=== PATIENT | male | born 1995 | race Hispanic/Latino ===

== ENCOUNTER 2020-01-12 11:58 | Outpatient (CLI) | payer OTHER, SELFPAY ==
[2020-01-12 12:53] LABS: Alanine Aminotransferase 25 U/L (4-50); Albumin Level 4.5 g/dL (3.5-5.1); Alkaline Phosphatase 124 U/L (38-126); Aspartate Amino Transferase 24 U/L (17-59); Bilirubin,Total 0.7 mg/dL (0.2-1.3); Blood Urea Nitrogen 17 mg/dL (9-20); Calcium 8.8 mg/dL (8.4-10.2); Carbon Dioxide 27 mmol/L (22-30); Chloride 100 mmol/L (98-107); Cholesterol 162 mg/dL (0-200); Estimated Glomerular Filt Rate > 60; Glucose 355 mg/dL (75-110); HDL Direct 45 mg/dL; Sodium 137 mmol/L (137-145); Triglycerides 104 mg/dL (<150)
[2020-01-12 13:04] LABS: Creatinine Urine 47.6 mg/dL
[2020-01-12 13:05] LABS: LDL Cholesterol Direct 102 mg/dL
[2020-01-12 13:09] LABS: T4 Thyroxine 7.19 ug/dL (5.53-11.0)
[2020-01-12 13:10] LABS: Microalbumin Urine Random < 6.0 mg/L (0-16.7)
[2020-01-12 13:11] LABS: MALB Creatinine Ratio < 12.6 mg/g (0-30)
== END 2020-01-12 11:59 | disposition home or self-care (01) ==
PROVIDERS: PCP Registered Nurse; Visit Provider Internal Medicine Endocrinology, Diabetes & Metabolism
DX: E10.65 Type 1 diabetes mellitus with hyperglycemia (principal)
CPT/HCPCS: 36415; 80053; 80061; 82043; 84436; 84443

== ENCOUNTER 2020-08-03 13:26 | Emergency (ER) | payer MEDICAID, SELFPAY ==
--- NOTE | ~2020-08-03 | CT_ITS ---
EXAMINATION: CT abdomen pelvis w con DATE: 08/03/2020 16:46 INDICATION: Abdominal pain and diarrhea TECHNIQUE: Computed tomography (CT) of the abdomen and pelvis was performed with 100 mL Omnipaque-350 intravenous contrast. Automated exposure control and iterative reconstruction technique were employe d. The dose-length product was 868.72 mGy-cm. COMPARISON: None FINDINGS: Lung bases are clear. Heart size is normal. No pericardial or pleural effusion. Bilateral gynecomasti a. Indeterminate 2.5 cm poorly defined nodule in segment 3 of the liver demonstrate slightly lower at tenuation/enhancement than the surrounding liver. Gallbladder, spleen, pancreas, bilateral adrenal gl ands and kidneys are normal. Mild diffuse colonic wall thickening suggestive of colitis. No pneumatos is. Small bowel and appendix are normal. Decompressed bladder is normal. No free intraperitoneal gas or fluid. No pathologically enlarged abdominal or pelvic lymphadenopathy. Incidentally noted circumao rtic left renal veins. Bilateral L5 pars intra-articular is defects without spondylolisthesis. IMPRESSION: 1. Diffuse mild colonic wall thickening consistent with colitis which could be infectious, inflammato ry or an likely ischemic in etiology. 2. Indeterminate 2.5 cm lesion in the left hepatic lobe. Given patient's age and in the absence of kn own malignancy or liver disease this is most likely benign with differential including focal nodular hyperplasia, hemangioma or focal fat and would consider 6 month follow-up pre and postcontrast MRI. I f the patient has high risk factors for malignancy, more immediate pre and postcontrast MRI would be recommended, possibly with subsequent biopsy. 3. Bilateral L5 pars interarticularis defects. Reviewed, dictated and finalized at location A. UNT MANAGEMENT SPECIALIST IMPRESSION: 1. Diffuse mild colonic wall thickening consistent with colitis which could be infectious, inflammatory or an likely ischemic in etiology. 2. Indeterminate 2.5 cm lesion in the left hepatic lobe. Given patient's age an d in the absence of known malignancy or liver disease this is most likely benig n with differential including focal nodular hyperplasia, hemangioma or focal fa t and would consider 6 month follow-up pre and postcontrast MRI. If the patient has high risk factors for malignancy, more immediate pre and postcontrast MRI would be recommended, possibly with subsequent biopsy. 3. Bilateral L5 pars interarticularis defects.
[2020-08-03 13:28] VITALS: BP 132/81; PULSE 70; RESP 16; TEMP 36; O2SAT 100
[2020-08-03 13:44] LABS: Basophils Percent Auto 0.4 % (0.2-1.2); Eosinophils Absolute Auto 0.1 K/mm3 (0-0.3); Hemoglobin 14.8 g/dL (14.0-18.0); Immature Granulocyte Absolute 0.01 K/mm3 (0.00-0.031); Immature Granulocyte Percent A 0.1 % (0-0.5); Lymphocytes Absolute Auto 1.42 K/mm3 (0.9-3.2); Lymphocytes Percent Auto 20.6 % (18.3-44.2); Mean Corpuscular HGB Conc 34.4 g/dl (32-36); Mean Corpuscular Hemoglobin 29.3 pg (26-34); Mean Corpuscular Volume 85.1 fl (80-100); Mean Platelet Volume 11.1 fl (7.4-10.4); Monocytes Absolute Auto 0.4 K/mm3 (0.1-0.6); Monocytes Percent Auto 5.8 % (2.6-8.5); Neutrophils Absolute Auto 4.9 K/mm3 (1.3-6.7); Neutrophils Percent Auto 71.1 % (45.5-73.1); Platelet Count Result 253 k/mm3 (150-375); Red Blood Count 5.05 M/mm3 (4.6-6.20); Red Cell Distribution Width 12.4 % (11.5-14.5); White Blood Count 6.9 K/mm3 (4.5-10.0)
[2020-08-03 13:57] LABS: Alanine Aminotransferase 21 U/L (4-50); Albumin Level 4.4 g/dL (3.5-5.1); Alkaline Phosphatase 123 U/L (38-126); Anion Gap 6 mmol/L (8-16); Aspartate Amino Transferase 25 U/L (17-59); Bilirubin,Total 0.7 mg/dL (0.2-1.3); Blood Urea Nitrogen 10 mg/dL (9-20); Carbon Dioxide 32 mmol/L (22-30); Chloride 102 mmol/L (98-107); Estimated CRCL calculation 224 ml/min; Estimated Glomerular Filt Rate > 60; Glucose 263 mg/dL (75-110); Lipase 44 U/L (23-300); Potassium 3.6 mmol/L (3.4-5.0); Sodium 140 mmol/L (137-145)
--- NOTE | 2020-08-03 15:32 | ECG_ITS ---
Measurements Intervals [place] Rate: 67 P: 11 OR: 128 QRS: 13 QRSD: 114 T: 17 QT: 376 QTc: 399 Interpretive Statements SINUS RHYTHM INTRAVENTRICULAR CONDUCTION DELAY BORDERLINE ECG Electronically Signed On 08-03-2020 15:57:21 WELFARE MANAGER by Quan Green D.O.
[2020-08-03 15:35] VITALS: TEMP 36.6
--- NOTE | 2020-08-03 16:21 | ED.ABDPAIN ---
HPI - Abdominal Pain General Chief Complaint: Abdominal Pain Stated Complaint: ABD pain x 1 week Time Seen by Provider: 08/03/20 15:24 Source: patient Mode of arrival: ambulatory Limitations: no limitations History of Present Illness HPI narrative: This patient is 24 year old male with history of diabetes mellitus who presents for evaluation abdominal pain and diarrhea. Patient states he has had constant epigastric abdominal pain and heart burn for 1 week. He has been taking tums and peptobismal daily for his symptoms. He also reports diarrhea 2-3 times a day. He denies fever, chills , nausea, vomiting , cough or sob. He reports peptobismal mad his heart burn resolve this morning. He denies sick contacts. Related Data Allergies Allergy/AdvReac Type Severity Reaction Status Date / Time No Known Allergies Allergy Unverified 02/04/17 16:31 Review of Systems Review of Systems: All systems reviewed & are unremarkable except as noted in HPI and below Constitutional: Constitutional: Denies chills and Denies fever(s) Cardiovascular: Cardiovascular: Denies chest pain Respiratory: Respiratory: Denies cough and Denies dyspnea Gastrointestinal: Gastrointestinal: Reports abdominal pain, Reports diarrhea and Reports nausea Neurologic: Denies headache(s) PMFSH Past Medical History Medical History Diabetes mellitus Family History Family History (Updated 07/21/19 @ 12:42 by Patsy Rodriguez MD) Sibling Diabetes mellitus Social History Social History (Updated 01/21/20 @ 12:52 by Patsy Rodriguez MD) Smoking status: Never smoker Second hand tobacco smoke exposure: No Alcohol intake: never Substance use: never Substance use type: does not use Additional living arrangements comments: lives with parents 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 HEAD: Normocephalic, atraumatic EYES: PERRLA and EOMI, conjunctiva clear without discharge THROAT:Mucous membranes moist, Oropharynx normal without erythema, exudate, peritonsillar swelling or fluctuance NECK: Supple, without lymphadenopathy or mass RESPIRATORY: No respiratory distress, Airway patent, Respirations non-labored, Clear to auscultation without rales, rhonchi or wheeze HEART: Regular rate and rhythm. No murmur heard. Normal peripheral pulses. ABDOMEN: Soft, nontender, nondistended, normal active bowel sounds. No masses. No rebound or guarding, No organomegaly. EXTREMITIES: No edema, normal strength with full range of motion. SKIN: Warm, dry, normal color without rash NEURO: Alert and oriented x3. CN 2-12 grossly intact. No focal deficits. PSYCH: Normal mood and affect. Course Reevaluation(s) Reevaluation #1: I have discussed with patient CT results and discharge plan. Date: 08/03/20 Time: 18:23 Vital Signs Vital signs: Vital Signs Temperature 96.8 F L 08/03/20 13:28 Pulse Rate 70 08/03/20 13:28 Respiratory Rate 16 08/03/20 13:28 Blood Pressure 132/81 08/03/20 13:28 Pulse Oximetry 100 08/03/20 13:28 Temperature 97.9 F 08/03/20 18:56 Pulse Rate 78 08/03/20 18:56 Respiratory Rate 22 H 08/03/20 18:56 Blood Pressure 110/71 08/03/20 18:56 Pulse Oximetry 100 08/03/20 18:56 MDM - Abdominal Pain Lab Data Attestation: I reviewed the patient's lab results. Result diagrams: 08/03/20 13:34 08/03/20 13:34 Labs: Lab Results 08/03/20 08/03/20 08/03/20 Range/Units 13:34 13:34 17:04 WBC 6.9 (4.5-10.0) K/mm3 RBC 5.05 (4.6-6.20) M/mm3 Hgb 14.8 (14.0-18.0) g/dL Hct 43.0 (42.0-52.0) % MCV 85.1 (80-100) fl MCH 29.3 (26-34) pg MCHC 34.4 (32-36) g/dl RDW 12.4 (11.5-14.5) % Plt Count
[2020-08-03] MEDS: ONDANSETRON INJ 4 MG/2 ML VIAL IV PUSH (16:30)
[2020-08-03] MEDS: PANTOPRAZOLE SODIUM IV 40 MG VIAL IV PUSH (16:30)
[2020-08-03] MEDS: BELLADONNA ALK/PHENOB ELIX 10 ML, MAG HYDROX/ALUMINUM HYD/SIMETH 30 ML, LIDOCAINE HCL 2... PO (16:30)
[2020-08-03 17:16] LABS: Add Urine Microscopic? YES; Appearance Urine Clear (Clear); Bacteria Urine Trace /hpf; Bilirubin Urine Negative (Negative); Blood Urine Negative (Negative); Color Urine Yellow (Yellow); Glucose Urine UA 3+ mg/dL (Negative); Ketones Urine Trace mg/dL (Negative); Leukocyte Esterase Ur Negative LEU/UL (Negative); Mucus Urine Heavy /lpf; Nitrate Urine Negative (Negative); Protein Urine 1+ mg/dL (Negative); RBC Urine 0-2 /hpf (0-2); Squamous Epithelial Cell Urine Rare /hpf (Few)
--- NOTE | 2020-08-03 17:32 | PC.NURSE ---
resting on stretcher. all tests resulted. alert. oriented. denies needs. waiting for further orders vs disposition from provider.
[2020-08-03 18:56] VITALS: BP 110/71; PULSE 78; RESP 22; TEMP 36.6; O2SAT 100
== END 2020-08-03 18:58 | disposition home or self-care (01) ==
PROVIDERS: Emergency Medicine; Emergency Provider General Practice; PCP Registered Nurse
DX: K52.9 Noninfective gastroenteritis and colitis, unspecified (principal); E11.9 Type 2 diabetes mellitus without complications; K76.9 Liver disease, unspecified
CPT/HCPCS: 36415; 74177; 80053; 81001; 83690; 85025; 93005; 96374; 96375; 99284; A9270; C9113; J2405; Q9967

== ENCOUNTER 2020-08-23 03:41 | Inpatient (IN) | payer MEDICAID, SELFPAY ==
[2020-08-23] VITALS (25 sets, daily range): BP systolic 100–133; BP diastolic 52–67; PULSE 78–115; RESP 16–20; TEMP 35.6–37.2; O2SAT 98–100
[2020-08-23] MEDS: SODIUM CHLORIDE 0.9% IV 2,000 ML 999 ML IV CONT (04:05)
[2020-08-23] MEDS: ONDANSETRON INJ 4 MG/2 ML VIAL IV PUSH ×3 (04:05→23:32)
--- NOTE | 2020-08-23 04:05 | ED.GENADULT ---
HPI - General Adult General Chief complaint: Nausea/Vomiting/Diarrhea Stated complaint: vomiting Time Seen by Provider: 08/23/20 03:52 History of Present Illness HPI narrative: Patient is a 25-year-old gentleman who presents the emergency department with chief complaint of nausea and vomiting. The patient is a insulin-dependent diabetic and reports that he has not been checking his blood sugars the patient states on Sunday evening he started having episodes of vomiting and has been unable to tolerate fluids since Sunday. The patient reports he has had several bouts of diarrhea reports that he was recently treated for colitis with oral antibiotics and only completed 7 days of the course of the antibiotic because it tasted weird and it conflicted with his work schedule. Related Data Allergies Allergy/AdvReac Type Severity Reaction Status Date / Time No Known Allergies Allergy Unverified 02/04/17 16:31 Review of Systems Review of Systems: Narrative: A 10 system review of systems was completed on the patient and is negative except for what is stated in the HPI. Nursing and ancillary documentation was reviewed. 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 HEAD: Normocephalic, atraumatic. EYES: PERRLA and EOMI. ENT: Nares clear, no rhinorrhea or epistaxis. Mucous membranes moist. NECK: Supple. CHEST: Clear to auscultation. No respiratory distress. HEART: Regular rate and rhythm. No murmur heard. Normal peripheral pulses. ABDOMEN: Soft, nontender, nondistended, normal active bowel sounds. EXTREMITIES: Normal range of motion. No edema. SKIN: Warm, dry, no rash. NEURO: No focal deficits. Alert and oriented x3. PSYCH: Normal mood and affect. Course Vital Signs Vital signs: Vital Signs Temperature 35.6 C L 08/23/20 03:46 Pulse Rate 113 H 08/23/20 03:46 Respiratory Rate 18 08/23/20 03:46 Blood Pressure 118/53 L 08/23/20 03:46 Pulse Oximetry 100 08/23/20 03:46 Temperature 35.6 C L 08/23/20 03:46 Pulse Rate 113 H 08/23/20 03:46 Respiratory Rate 18 08/23/20 03:46 Blood Pressure 118/53 L 08/23/20 03:46 Pulse Oximetry 100 08/23/20 03:46 Medical Decision Making Vital Signs Vital Signs: Vital Signs Temperature 35.6 C L 08/23/20 03:46 Pulse Rate 113 H 08/23/20 03:46 Respiratory Rate 18 08/23/20 03:46 Blood Pressure 118/53 L 08/23/20 03:46 Pulse Oximetry 100 08/23/20 03:46 Temperature 35.6 C L 08/23/20 03:46 Pulse Rate 113 H 08/23/20 03:46 Respiratory Rate 18 08/23/20 03:46 Blood Pressure 118/53 L 08/23/20 03:46 Pulse Oximetry 100 08/23/20 03:46 Lab Data Result diagrams: 08/23/20 04:09 08/23/20 04:09 Labs: Lab Results 08/23/20 08/23/20 08/23/20 Range/Units 04:09 04:09 04:09 WBC 18.5 H (4.5-10.0) K/mm3 RBC 5.33 (4.6-6.20) M/mm3 Hgb 15.9 (14.0-18.0) g/dL Hct 47.6 (42.0-52.0) % MCV 89.3 (80-100) fl MCH 29.8 (26-34) pg MCHC 33.4 (32-36) g/dl RDW 12.4 (11.5-14.5) % Plt Count 303 (150-375) k/mm3 MPV 11.7 H (7.4-10.4) fl Immature Gran % (Auto) 0.7 H (0-0.5) % Neut % (Auto) 87.0 H (45.5-73.1) % Lymph % (Auto)
[2020-08-23 04:18] LABS: Alveolar/Arterial O2 Gradient 15.4 mmHg; Base Excess ABG -14.5 mEq/l (+/-2.0); Fractional Inspired Oxygen 21 %; HCO3 ABG 12.1 mEq/l (22.0-26.0); Oxygen Content ABG 20.8 %vol (16.0-22.0); Oxygen Saturation ABG 96.1 % (95.0-100.0); Oxyhemoglobin 95.6 % THb (90.0-100.0); PCO2 ABG 31.2 mmHg (35.0-45.0); PO2 FiO2 Ratio Arterial Blood 4.62 %; Total Hemoglobin 15.4 g/dL (12.0-18.0)
[2020-08-23 04:20] LABS: Device ROOM AIR; Modified Allen's Test Pass; Site Drawn LEFT RADIAL; pH ABG 7.206 (7.350-7.450)
[2020-08-23 04:24] LABS: Glucose Point of Care > 500 (65-105)
[2020-08-23 04:26] LABS: Basophils Absolute Auto 0.1 K/mm3 (0.0-0.1); Basophils Percent Auto 0.3 % (0.2-1.2); Hematocrit 47.6 % (42.0-52.0); Hemoglobin 15.9 g/dL (14.0-18.0); Immature Granulocyte Absolute 0.12 K/mm3 (0.00-0.031); Immature Granulocyte Percent A 0.7 % (0-0.5); Lymphocytes Absolute Auto 1.66 K/mm3 (0.9-3.2); Mean Corpuscular HGB Conc 33.4 g/dl (32-36); Mean Corpuscular Hemoglobin 29.8 pg (26-34); Mean Corpuscular Volume 89.3 fl (80-100); Mean Platelet Volume 11.7 fl (7.4-10.4); Monocytes Absolute Auto 0.6 K/mm3 (0.1-0.6); Neutrophils Absolute Auto 16.1 K/mm3 (1.3-6.7); Platelet Count Result 303 k/mm3 (150-375); Red Blood Count 5.33 M/mm3 (4.6-6.20); Red Cell Distribution Width 12.4 % (11.5-14.5); White Blood Count 18.5 K/mm3 (4.5-10.0)
[2020-08-23 04:56] LABS: Alanine Aminotransferase 38 U/L (4-50); Albumin Level 5.1 g/dL (3.5-5.1); Alkaline Phosphatase 152 U/L (38-126); Anion Gap 29 mmol/L (8-16); Aspartate Amino Transferase 44 U/L (17-59); Bilirubin,Total 1.6 mg/dL (0.2-1.3); Blood Urea Nitrogen 22 mg/dL (9-20); Calcium 9.9 mg/dL (8.4-10.2); Carbon Dioxide 12 mmol/L (22-30); Chloride 96 mmol/L (98-107); Estimated Glomerular Filt Rate > 60; Glucose 600 mg/dL (75-110); Lipase 25 U/L (23-300); Potassium 4.6 mmol/L (3.4-5.0); Sodium 137 mmol/L (137-145)
[2020-08-23] MEDS: SODIUM CHLORIDE 0.9% IV 1,000 ML 200 ML IV CONT (05:21)
[2020-08-23] MEDS: INSULIN HUMAN REGULAR (*BKC) 100 UNITS in SODIUM CHLORIDE 0.9% IV 99 ML 8.6 UNITS IV CONT (05:32)
[2020-08-23] MEDS: SODIUM CHLORIDE 0.9% IV 1,000 ML 999 ML IV CONT (05:36)
[2020-08-23 05:37] LABS: Glucose Point of Care 493 (65-105)
[2020-08-23 05:43] LABS: Beta-Hydroxybutyrate/Acetoacetate 7.14 mmol/L (0.02-0.27)
[2020-08-23 05:48] LABS: Add Urine Microscopic? YES; Appearance Urine Clear (Clear); Bilirubin Urine Negative (Negative); Blood Urine Negative (Negative); Color Urine Colorless (Yellow); Glucose Urine UA 3+ mg/dL (Negative); Ketones Urine 2+ mg/dL (Negative); Leukocyte Esterase Ur Negative LEU/UL (Negative); Nitrate Urine Negative (Negative); Protein Urine Negative (Negative); RBC Urine 0-2 /hpf (0-2); Specific Grav Ur 1.024 (1.001-1.035); Squamous Epithelial Cell Urine Rare /hpf (Few); Urobilinogen Urine Negative mg/dL (<2.0); WBC Urine 0-3 /hpf
[2020-08-23 06:36] LABS: Glucose Point of Care 416 (65-105)
[2020-08-23 07:34] LABS: Glucose Point of Care 323 (65-105)
[2020-08-23 08:34] LABS: Glucose Point of Care 302 (65-105)
[2020-08-23] MEDS: SODIUM CHLORIDE 0.9% IV 1,000 ML 150 ML IV CONT (08:40)
[2020-08-23 09:11] LABS: Anion Gap 22 mmol/L (8-16); Blood Urea Nitrogen 19 mg/dL (9-20); Calcium 8.6 mg/dL (8.4-10.2); Carbon Dioxide 10 mmol/L (22-30); Chloride 111 mmol/L (98-107); Estimated Glomerular Filt Rate > 60; Glucose 310 mg/dL (75-110); Potassium 4.4 mmol/L (3.4-5.0); Sodium 143 mmol/L (137-145)
[2020-08-23 09:28] LABS: Glucose Point of Care 257 (65-105)
[2020-08-23 10:32] LABS: Glucose Point of Care 255 (65-105)
[2020-08-23] MEDS: KCL 20 MEQ/D5/0.45% SOD CHL 1,000 ML 150 ML IV CONT (11:31)
[2020-08-23 11:33] LABS: Glucose Point of Care 168 (65-105)
[2020-08-23 12:33] LABS: Glucose Point of Care 189 (65-105)
--- NOTE | 2020-08-23 12:35 | PM.IMHP ---
H&P: HPI History of Present Illness Date/Time: 08/23/20 12:35 N/V/Abdominal pain. Chief Complaint: N/V/Abdominal pain. Narrative: Norm Vaughan is a 25 year old male with PMHx significant for T1DM, patient presented to ED due to n/v/abdominal pain x 3 days. Patient denies any fevers,chills or rigors, cough, sputum production, no sore throat, no pain or burning with urination, he has an ingrown nail of the R toe as well. Patient states that he has been under a lot of stress at his new job and can't keep up with his meals and insulin schedule for the last 3 months or so. He was found to have elevated blood sugars and anion gap. Review of Systems Review of Systems: Narrative: Patient presented to ED due to n/v/abdominal pain for the last 3 days or so. Constitutional: Comments: No chills, no fevers, no rigors. Eyes: Comments: No vision changes. ENT: Comments: no ear ache, no throat pain, no nasal discharge. Cardiovascular: Comments: no chest pain. Respiratory: Comments: no sob, no cough, no sputum production Gastrointestinal: Comments: n/v/abdominal pain. Musculoskeletal: Comments: ingrown R toe nail. Integumentary/Breasts: Comments: no rash Neurologic: Comments: no sensory motor deficit. Endocrine: Comments: denies any weight loss. 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 Gender identity (if verbalized by the patient): Male Spiritual care concerns: No Meds Home Medications and Allergies Home Medications Medication Instructions Recorded Confirmed Type insulin syringe-needle U-100 1 mL #100 each 07/21/19 07/21/19 Rx 31 gauge x 01/16 blood sugar diagnostic #100 each 01/21/20 01/21/20 Rx glucagon (human recombinant) 1 mg 1 mg SUB-Q ONCE PRN #1 each 01/21/20 01/21/20 Rx solution for injection insulin glargine 100 unit/mL (3 55 unit SUB-Q DAILY 90 Days #49.5 01/21/20 01/21/20 Rx mL) subcutaneous pen ml pen needle, diabetic 31 gauge x #100 each 01/21/20 01/21/20 Rx 01/16 blood sugar diagnostic #400 each 03/31/20 Rx flash glucose sensor #6 each 04/28/20 04/28/20 Rx insulin lispro 100 unit/mL See Rx Instructions SUB-Q TID 90 05/03/20 Rx subcutaneous pen Days #18 syr omeprazole magnesium [Prilosec OTC] 20 mg PO DAILY #20 tablet 08/03/20 Rx Allergies Allergy/AdvReac Type Severity Reaction Status Date / Time No Known Allergies Allergy Unverified 02/04/17 16:31 Vital Signs Vital Signs - 24 hr 08/23/20 03:46 08/23/20 04:17 08/23/20 04:18 Temperature 96.1 F L Pulse Rate 113 H Respiratory Rate 18 Blood Pressure 118/53 L 133/61 Pulse Oximetry 100 100 100 08/23/20 04:30 08/23/20 04:31 08/23/20 04:45 Temperature Pulse Rate 111 H Respiratory Rate Blood Pressure 118/54 L Pulse Oximetry 100 100 100 08/23/20 05:00 08/23/20 05:01 08/23/20 05:02 Temperature Pulse Rate 114 H Respiratory Rate Blood Pressure 117/57 L Pulse Oximetry 100 100 100 08/23/20 05:15 08/23/20 05:30 08/23/20 05:41 Temperature Pulse Rate Respiratory Rate Blood Pressure 110/65 Pulse Oximetry 100 98 100 08/23/20 05:45 08/23/20 06:00 08/23/20 06:01 Temperature Pulse Rate Respiratory Rate Blood Pressure 100/64 Pulse Oximetry 100 100 99 08/23/20 06:25 08/23/20 08:00 08/23/20 10:00 Temperature 98.9 F Pulse Rate 115 H 106 H 101 H Respira
--- NOTE | 2020-08-23 12:37 | ADMGEN ---
This patient, Norm Vaughan, was admitted to Intensive Care Unit-10 @ 0650. Patient/family oriented to hospital policies and general routines including ID bracelet, bed and alarms, visiting hours, pain management, procedures, bathroom and other care routines, personal items, smoking policy, room service/diet, and visiting hours. Information on how to activate the Rapid Response Team has been discussed. Patient/Family are encouraged to report perceived risks to care and to ask questions if they do not understand what they are told or what they should do.
[2020-08-23 12:57] LABS: Anion Gap 10 mmol/L (8-16); Blood Urea Nitrogen 16 mg/dL (9-20); Calcium 8.4 mg/dL (8.4-10.2); Carbon Dioxide 18 mmol/L (22-30); Chloride 112 mmol/L (98-107); Estimated Glomerular Filt Rate > 60; Glucose 184 mg/dL (75-110); Potassium 4.4 mmol/L (3.4-5.0); Sodium 140 mmol/L (137-145)
[2020-08-23 13:31] LABS: Glucose Point of Care 185 (65-105)
--- NOTE | 2020-08-23 14:34 | WPDCNINT ---
Assessment and Plan Assessment and plan (1) Diabetic ketoacidosis: Qualifiers: Diabetes mellitus complication detail: without coma Diabetes mellitus type: type 1 Qualified Code(s): E10.10 - Type 1 diabetes mellitus with ketoacidosis without coma Code(s): E11.10 - Type 2 diabetes mellitus with ketoacidosis without coma Status: Acute Assessment and Plan: Patient presented with nausea, vomiting, abdominal pain. -found to be in DKA on admission the ER, given 3 L IV fluid bolus, started on insulin infusion per DKA protocol -will transition to long-acting insulin anion gap closes and acidosis resolves -most recent hemoglobin A1c in April 2020 was 9.7. Will repeat in a.m. -research laboratory technician to evaluate -inclusion special educator to evaluate (2) Non-intractable vomiting with nausea: Code(s): R11.2 - Nausea with vomiting, unspecified Status: Acute Assessment and Plan: Resolved likely related to DKA, adequately fluid-resuscitated -p.r.n. antiemetics Additional Plan Discussed with patient updated with his condition and plan of care. Answered all questions Code status: Full code Critical care time spent: 37 minutes Due to a high probability of clinically significant, life threatening deterioration, the patient required my highest level of preparedness to intervene emergently and I personally spent this critical care time directly and personally managing the patient. This critical care time included obtaining a history; examining the patient; pulse oximetry; ordering and review of studies; arranging urgent treatment with development of a management plan; evaluation of patient's response to treatment; frequent reassessment; and discussions with other providers. It was exclusive of separately billable procedures and treating other patients and teaching time. Please see Assessment and Plan section and the rest of the note for further information on patient assessment and treatment Legal Billing Analyst Consult Note Consult date: 08/23/20 Time Seen: 07:19 Reason for consult: Diabetic ketoacidosis, nausea, vomiting, abdominal pain HPI: Norm Vaughan is a 25 year old male with past medical history of insulin-dependent diabetes, presented the ED on 08/23/2020 with complains of nausea, vomiting, abdominal pain for 3 days. Patient states he has been taking insulin on and off due to his new job he cannot keep up the insulin schedule. He was found to have elevated blood sugars with elevated anion gap and was found to be in DKA with elevated beta hydroxybutyrate. Patient was given 3 L IV fluid bolus, started on insulin infusion per DKA protocol and transferred to the ICU for further management. Patient seen and examined in the ICU, remains awake, alert, in no acute distress. States he feels much better than the time he has come to the hospital. 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
[2020-08-23 14:42] LABS: Glucose Point of Care 151 (65-105)
--- NOTE | 2020-08-23 14:50 | PC.NURSE ---
Left message for museum educator on her voicemail.
[2020-08-23] MEDS: INSULIN HUMAN REGULAR (*BKC) 100 UNITS in SODIUM CHLORIDE 0.9% IV 99 ML 11 UNITS IV CONT (15:23)
[2020-08-23 15:40] LABS: Glucose Point of Care 149 (65-105)
[2020-08-23 16:35] LABS: Anion Gap 6 mmol/L (8-16); Blood Urea Nitrogen 15 mg/dL (9-20); Calcium 8.7 mg/dL (8.4-10.2); Carbon Dioxide 22 mmol/L (22-30); Chloride 113 mmol/L (98-107); Estimated Glomerular Filt Rate > 60; Glucose 146 mg/dL (75-110); Potassium 4.2 mmol/L (3.4-5.0); Sodium 141 mmol/L (137-145)
[2020-08-23 16:41] LABS: Glucose Point of Care 122 (65-105)
[2020-08-23] MEDS: INSULIN GLARGINE (*BKC) 100 UNITS/ML 55 UNITS SUB-Q (17:00)
[2020-08-23 17:57] LABS: Glucose Point of Care 129 (65-105)
[2020-08-23 21:04] LABS: Glucose Point of Care 153 (65-105)
--- NOTE | 2020-08-23 23:02 | PC.NURSE ---
transfered to 260 no monitor required pt stable on his feet when ambulating to the bathroom
[2020-08-24 05:08] VITALS: BP 110/57; PULSE 73; RESP 18; TEMP 36.8; O2SAT 99
[2020-08-24 05:34] LABS: Basophils Percent Auto 0.2 % (0.2-1.2); Hematocrit 42.1 % (42.0-52.0); Hemoglobin 13.7 g/dL (14.0-18.0); Immature Granulocyte Absolute 0.06 K/mm3 (0.00-0.031); Immature Granulocyte Percent A 0.4 % (0-0.5); Lymphocytes Absolute Auto 1.48 K/mm3 (0.9-3.2); Lymphocytes Percent Auto 10.3 % (18.3-44.2); Mean Corpuscular HGB Conc 32.5 g/dl (32-36); Mean Corpuscular Hemoglobin 28.9 pg (26-34); Mean Corpuscular Volume 88.8 fl (80-100); Mean Platelet Volume 10.9 fl (7.4-10.4); Monocytes Absolute Auto 0.7 K/mm3 (0.1-0.6); Monocytes Percent Auto 4.7 % (2.6-8.5); Neutrophils Absolute Auto 12.1 K/mm3 (1.3-6.7); Neutrophils Percent Auto 84.4 % (45.5-73.1); Platelet Count Result 263 k/mm3 (150-375); Red Blood Count 4.74 M/mm3 (4.6-6.20); Red Cell Distribution Width 12.7 % (11.5-14.5); White Blood Count 14.3 K/mm3 (4.5-10.0)
--- NOTE | 2020-08-24 05:36 | ADMGEN ---
This patient, Norm Vaughan, was admitted to 2 Medical Room 260-. Patient/family oriented to hospital policies and general routines including ID bracelet, bed and alarms, visiting hours, pain management, procedures, bathroom and other care routines, personal items, smoking policy, room service/diet, and visiting hours. Information on how to activate the Rapid Response Team has been discussed. Patient/Family are encouraged to report perceived risks to care and to ask questions if they do not understand what they are told or what they should do.
[2020-08-24 05:47] LABS: Hemoglobin A1C 9.3 % (<5.7); Potassium 4.5 mmol/L (3.4-5.0)
[2020-08-24 05:58] LABS: Alanine Aminotransferase 28 U/L (4-50); Albumin Level 4.1 g/dL (3.5-5.1); Alkaline Phosphatase 100 U/L (38-126); Anion Gap 17 mmol/L (8-16); Aspartate Amino Transferase 26 U/L (17-59); Bilirubin,Total 1.1 mg/dL (0.2-1.3); Blood Urea Nitrogen 14 mg/dL (9-20); Calcium 9.1 mg/dL (8.4-10.2); Carbon Dioxide 16 mmol/L (22-30); Chloride 106 mmol/L (98-107); Estimated Glomerular Filt Rate > 60; Glucose 335 mg/dL (75-110); Sodium 139 mmol/L (137-145)
[2020-08-24 08:20] LABS: Glucose Point of Care 339 (65-105)
[2020-08-24] MEDS: INSULIN ASPART (*BKC) 100 UNITS/ML SUB-Q ×2 (08:35→17:24)
--- NOTE | 2020-08-24 10:20 | PM.IMPN ---
Progress Note: A&P Assessment and Plan (1) Diabetic ketoacidosis: Qualifiers: Diabetes mellitus complication detail: without coma Diabetes mellitus type: type 1 Qualified Code(s): E10.10 - Type 1 diabetes mellitus with ketoacidosis without coma Code(s): E11.10 - Type 2 diabetes mellitus with ketoacidosis without coma Status: Acute Assessment and Plan: Will continue with IV insulin and monitor electrolytes (2) Non-intractable vomiting with nausea: Code(s): R11.2 - Nausea with vomiting, unspecified Status: Acute Assessment and Plan: Nausea and vomiting is better with the IV fluids and Zofran will continue current treatment (3) Dietary counseling and surveillance: Code(s): Z71.3 - Dietary counseling and surveillance Status: Acute Assessment and Plan: Diet instructions provided to the patient Subjective Date/time seen: 08/24/20 10:20 Interval history: Patient seen during the morning hours today patient is feeling slightly better decrease nausea and vomiting decrease abdominal pain no shortness of breath and chest pain, mood stable Review of Systems Review of Systems: All systems reviewed & are unremarkable except as noted in HPI and below Constitutional: Constitutional: Reports as per HPI Eyes: Eyes: Reports as per HPI ENT: Reports system reviewed and no additional complaints, except as documented Cardiovascular: Cardiovascular: Reports as per HPI Respiratory: Respiratory: Reports as per HPI Gastrointestinal: Gastrointestinal: Reports as per HPI Musculoskeletal: Musculoskeletal: Reports no additional musculoskeletal complaints Neurologic: Reports system reviewed and no additional complaints, except as documented and Reports as per HPI Psychiatric: Psychiatric: Reports no additional psychiatric complaints and Reports as per HPI Endocrine: Endocrine: Reports as per HPI Exam Const: General: cooperative and no acute distress Orientation/consciousness: oriented to person, oriented to place, oriented to time and patient oriented x3 HENMT: Head: normal to inspection Ears: hearing grossly normal bilaterally and external ears normal General nose exam: Normal external nose present Face and sinus: normal facial exam Mouth: Yes Normal oral and palatal mucosa present Eyes: General: appearance normal, both eyes and all related structures Neck: Neck: normal visual inspection and full ROM Chest: Chest palpation & inspection: normal inspection of the chest and normal palpation of entire chest wall Resp: Effort & Inspection: normal respiratory effort Auscultation: clear to auscultation bilaterally Cardio: Jugular venous distension: no JVD Palpation: normal PMI Rate: regular rate Heart sounds: S1 normal heart sound present and S2 normal heart sound present GI: Inspection: normal to inspection GI Palp: No abdominal tenderness Neuro: General: oriented to person, oriented to place, oriented to time and patient oriented x3 Cranial nerves: Yes CN's II-XII intact bilaterally Speech: normal speech Gait exam (Neuro): Normal gait present Motor exam (neuro): 5/5 motor strength present throughout Sensory Exam: normal sensation Psych: Appearance: grossly normal Objective Data Vital Signs Vital Signs: Vital Signs - 24 hr 08/23/20 12:00 08/23/20 14:00 08/23/20 16:00 Temperature 36.8 C 36.9 C Pulse Rate 104 H 97 98 Respiratory Rate 17 19 19 Blood Pressure 112/64 111/62 Pulse Oximetry 100 100 100 08/23/20 18:00 08/23/20 19:47 08/23/20 19:49 Temperature 36.6 C Pulse Rate 85 84 90 Respiratory Rate 18 16 Blood Pressure 125/64 Pulse Oximetry 100 100 08/23/20 23:22 08/24/20 05:08 Temperature 36.4 C 36.8 C Pulse Rate 78 73 Respiratory Rate 20 18 Blood Pressure 115/52 L 110/57 L Pulse Oximetry 100 99 Intake/Output Intake/Output: Intake & Output 08/21/20 08/22/20 08/23/20 08/24/20 23:59 23:59 23:59 23:59 Intake Total 420
[2020-08-24] MEDS: HEPARIN SODIUM 5,000 UNITS/ML VIAL 5000 UNITS SUB-Q ×2 (11:24→20:38)
[2020-08-24] MEDS: PANTOPRAZOLE SODIUM IV 40 MG VIAL IV PUSH (11:24)
[2020-08-24 11:58] LABS: Glucose Point of Care 419 (65-105)
[2020-08-24] MEDS: INSULIN ASPART (*BKC) 100 UNITS/ML 15 UNITS SUB-Q (12:13)
[2020-08-24 14:00] VITALS: BP 121/64; PULSE 83; RESP 14; TEMP 36.4; O2SAT 99
--- NOTE | 2020-08-24 14:21 | PCDIET ---
Nutrition consult for DKA admission complete. Patient is tolerating current diet, consistent carb, with adequate intake. Denies any further n/v. Has been out of strips and stopped taking his humalog with meals because he was throwing up food so didn't feel he needed it. He also will eat a bag of chips or drink a soda without taking meal time insulin. He is very active at [employer] and felt he was compensating for sugars that way vs taking all of insulin. He does take 50 units of lantus at night. He does see an client technologies analyst. Diabetic book, monitor and strips, and perinatal educator card provided with encouragement to f/u with an appt with our perinatal educator to help with insulin needs. Pt also encouraged to call his physician when he becomes sick next time to discuss any changes to insulin regimen. Protein encouraged with all meals and snacks and regularly timed meal.
[2020-08-24 15:45] VITALS: BMI 29.0
[2020-08-24 17:04] LABS: Glucose Point of Care 333 (65-105)
[2020-08-24] MEDS: INSULIN ASPART (*BKC) 100 UNITS/ML 6 UNITS SUB-Q (17:24)
[2020-08-24] MEDS: INSULIN GLARGINE (*BKC) 100 UNITS/ML 60 UNITS SUB-Q (20:36)
[2020-08-24 21:02] LABS: Glucose Point of Care 291 (65-105)
[2020-08-24 22:00] VITALS: BP 124/64; PULSE 79; RESP 20; TEMP 36.8; O2SAT 99
[2020-08-25 05:04] VITALS: BP 120/62; PULSE 75; RESP 20; TEMP 36.3; O2SAT 97
[2020-08-25 06:20] LABS: Hematocrit 41.5 % (42.0-52.0); Hemoglobin 13.9 g/dL (14.0-18.0); Mean Corpuscular HGB Conc 33.5 g/dl (32-36); Mean Corpuscular Hemoglobin 28.8 pg (26-34); Mean Corpuscular Volume 85.9 fl (80-100); Mean Platelet Volume 10.7 fl (7.4-10.4); Platelet Count Result 239 k/mm3 (150-375); Red Blood Count 4.83 M/mm3 (4.6-6.20); Red Cell Distribution Width 12.3 % (11.5-14.5); White Blood Count 6.4 K/mm3 (4.5-10.0)
[2020-08-25 06:57] LABS: Alanine Aminotransferase 23 U/L (4-50); Alkaline Phosphatase 96 U/L (38-126); Anion Gap 9 mmol/L (8-16); Aspartate Amino Transferase 32 U/L (17-59); Bilirubin,Total 0.7 mg/dL (0.2-1.3); Blood Urea Nitrogen 16 mg/dL (9-20); Calcium 9.2 mg/dL (8.4-10.2); Carbon Dioxide 26 mmol/L (22-30); Chloride 105 mmol/L (98-107); Estimated CRCL calculation 161 ml/min; Estimated Glomerular Filt Rate > 60; Glucose 217 mg/dL (75-110); Potassium 3.5 mmol/L (3.4-5.0); Sodium 140 mmol/L (137-145)
[2020-08-25 07:06] LABS: Hemoglobin A1C 9.4 % (<5.7)
[2020-08-25] MEDS: PANTOPRAZOLE SODIUM IV 40 MG VIAL IV PUSH (08:36)
[2020-08-25] MEDS: HEPARIN SODIUM 5,000 UNITS/ML VIAL 5000 UNITS SUB-Q (08:36)
--- NOTE | 2020-08-25 10:38 | PM.DS ---
DS: Admitting Diagnosis Admitting Diagnosis Admitting Diagnosis: 1. DKA 2. Nausea and vomiting DS: Discharge Diagnosis Discharge Diagnosis (1) Diabetic ketoacidosis: Qualifiers: Diabetes mellitus complication detail: without coma Diabetes mellitus type: type 1 Qualified Code(s): E10.10 - Type 1 diabetes mellitus with ketoacidosis without coma Code(s): E11.10 - Type 2 diabetes mellitus with ketoacidosis without coma Status: Acute Assessment and Plan: Will continue with IV insulin and monitor electrolytes (2) Non-intractable vomiting with nausea: Code(s): R11.2 - Nausea with vomiting, unspecified Status: Acute Assessment and Plan: Nausea and vomiting is better with the IV fluids and Zofran will continue current treatment (3) Dietary counseling and surveillance: Code(s): Z71.3 - Dietary counseling and surveillance Status: Acute Assessment and Plan: Diet instructions provided to the patient DS: Summary Hospital Course Reason for hospitalization: 1. DKA 2. Nausea and vomiting Hospital Course: 25 years old male was admitted with complaint of having abdominal pain nausea and vomiting patient was found to have diabetic ketoacidosis.Patient was admitted with high sugar and low back up patient was given IV fluids and insulin.After few days of treatment patient started feeling better. Today patient is feeling great, he has no abdominal pain nausea vomiting is able to 100 ft his lab data finds. Patient is sent home stable in condition, diabetic diet, activity as tolerated and follow-up primary care physician but 1 week Time spent discussing smoking cessation with patient: 3 to 10 minutes Status at Discharge Cognitive/behavioral status at discharge: Stable Functional status at discharge: independent ambulation Overall status at discharge: patient is back to baseline Time Spent with Patient Time attestation: Total time spent providing and/or coordinating discharge services: Time spent: Less than 30 minutes Specific discharge activities: As tolerated Exam Narrative: Exam Narrative: Lying in bed. Const: General: cooperative, healthy appearing, comfortable, no acute distress, alert, awake and Physically active Nutritional Appearance: average body habitus Orientation/consciousness: oriented to person, oriented to place, oriented to time and patient oriented x3 Limitations: no limitations HENMT: Head: normal to inspection and normocephalic Ears: hearing grossly normal bilaterally and external ears normal General nose exam: Normal external nose present Face and sinus: normal facial exam Mouth: Yes Normal oral and palatal mucosa present Throat: other (Red, no plaques no exudates.) Eyes: General: appearance normal, both eyes and all related structures Pupils: Equal, round and reactive pupils present EOM: EOMs intact bilaterally Neck: Neck: normal visual inspection, full ROM, no lymphadenopathy, supple and no JVD Lymphatic: no lymphadenopathy noted Chest: Chest palpation & inspection: normal inspection of the chest and normal palpation of entire chest wall Resp: Effort & Inspection: normal respiratory effort Auscultation: clear to auscultation bilaterally Cardio: Jugular venous distension: no JVD Palpation: normal PMI Rate: regular rate Rhythm: regular rhythm Heart sounds: S1 normal heart sound present and S2 normal heart sound present GI: Inspection: normal to inspection GI Palp: No abdominal tenderness Skin: Lesions: no lesions Rashes: no rashes Nails: other (R toe ingrown nail.) Neuro: General: oriented to person, oriented to place, oriented to time and patient oriented x3 Cranial nerves: Yes CN's II-XII intact bilaterally and Yes Equal, round and reactive pupils present Cognition (Neuro): normal cognition Speech: normal speech Gait exam (Neuro): Normal gait present Motor exam (neuro): 5/5 motor strength present throughout Sensory Exam: normal sensation E
[2020-08-25] MEDS: INSULIN ASPART (*BKC) 100 UNITS/ML 6 UNITS SUB-Q (10:52)
[2020-08-25 10:57] LABS: Glucose Point of Care 163 (65-105)
--- NOTE | 2020-08-25 12:06 | PC.NURSE ---
According to Yusra, clinical systems educator, patient has insulin vials set aside at his endocrinologists office that he should cone picker after being discharged. Instructed patient on insulin changes, vial at endocrinologists, etc. Patient verbalized understanding.
== END 2020-08-25 12:14 | disposition home or self-care (01) | DRG 420 ==
LOC: ANHED 04:58 → ANH2MED 08-24 09:16 → ANHICU 08-30 17:25
PROVIDERS: Internal Medicine; Admitting Provider Family Medicine; Emergency Provider Emergency Medicine; PCP Registered Nurse; Visit Provider Internal Medicine
DX: E10.10 Type 1 diabetes mellitus with ketoacidosis without coma (principal); L60.0 Ingrowing nail
CPT/HCPCS: 36415; 36600; 80048; 80053; 81001; 82010; 82805; 82948; 83036; 83690; 85025; 85027; 96361; 96374; 96375; 96376; 99291; C9113; J1644; J1815; J2405; J3480; J7030

== ENCOUNTER 2020-11-02 11:33 | Emergency (ER) | payer BC, SELFPAY ==
--- NOTE | ~2020-11-02 | CT_ITS ---
EXAMINATION: CT abdomen pelvis w con DATE: 11/02/2020 13:19 INDICATION: Abdominal pain. Vomiting. TECHNIQUE: Computed tomography (CT) of the abdomen and pelvis was performed with 100 mL Omnipaque 350 intravenous contrast. Automated exposure control and iterative reconstruction technique were employe d. The dose-length product was 691.80 mGy-cm. COMPARISON: CT abdomen and pelvis 08/03/2020 FINDINGS: The visualized portions of the lung bases are clear without pneumonia or pleural effusion. The heart size is normal. No pericardial effusion. There is bilateral gynecomastia. The liver demonst rates focal steatosis adjacent to the falciform ligament. The gallbladder, spleen, pancreas, adrenal glands, and kidneys are normal. There are no dilated loops of bowel. The appendix is normal. There ar e no pathologically enlarged lymph nodes. There is no free intraperitoneal fluid. 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 IMPRESSION: 1. No etiology for the patient's symptoms. Reviewed, dictated and finalized at location A. C INSTRUCTOR
[2020-11-02 11:38] VITALS: BP 117/81; PULSE 74; RESP 18; TEMP 36.3; O2SAT 100
[2020-11-02 12:14] LABS: Basophils Percent Auto 0.4 % (0.2-1.2); Eosinophils Absolute Auto 0.2 K/mm3 (0-0.3); Eosinophils Percent Auto 2.9 % (0-4.4); Hematocrit 44.2 % (42.0-52.0); Hemoglobin 15.4 g/dL (14.0-18.0); Immature Granulocyte Absolute 0.02 K/mm3 (0.00-0.031); Immature Granulocyte Percent A 0.3 % (0-0.5); Lymphocytes Absolute Auto 1.54 K/mm3 (0.9-3.2); Lymphocytes Percent Auto 22.3 % (18.3-44.2); Mean Corpuscular HGB Conc 34.8 g/dl (32-36); Mean Corpuscular Hemoglobin 29.6 pg (26-34); Mean Corpuscular Volume 84.8 fl (80-100); Mean Platelet Volume 11.3 fl (7.4-10.4); Monocytes Absolute Auto 0.4 K/mm3 (0.1-0.6); Monocytes Percent Auto 5.6 % (2.6-8.5); Neutrophils Absolute Auto 4.7 K/mm3 (1.3-6.7); Neutrophils Percent Auto 68.5 % (45.5-73.1); Platelet Count Result 255 k/mm3 (150-375); Red Blood Count 5.21 M/mm3 (4.6-6.20); Red Cell Distribution Width 11.9 % (11.5-14.5); White Blood Count 6.9 K/mm3 (4.5-10.0)
--- NOTE | 2020-11-02 12:18 | ED.ABDPAIN ---
HPI - Abdominal Pain General Chief Complaint: Abdominal Pain <CRYSTAL Cruz Last Filed: 11/02/20 13:40> Stated Complaint: abdominal issues <Jade Álvarez PA-C - Last Filed: 11/02/20 13:40> Time Seen by Provider: 11/02/20 12:05 <Jade Álvarez PA-C - Last Filed: 11/02/20 13:40> Source: patient <CRYSTAL Cruz Last Filed: 11/02/20 13:40> Mode of arrival: ambulatory <CRYSTAL Cruz Last Filed: 11/02/20 13:40> Limitations: no limitations <Jade Álvarez PA-C - Last Filed: 11/02/20 13:40> History of Present Illness HPI narrative: This is a 25 year old male that presents to the ER for abdominal discomfort for the last couple of weeks. Reports he feels bloated. Reports when he eats he feels full easily when he eats. Reports his blood sugars have also been running high, in the upper 200s. He had a telephone visit with his primary doctor who started him on Famotidine, which does help some with the discomfort. Does report some nausea and vomiting. Denies fever, diarrhea, or dysuria. <Jade Álvarez PA-C - Last Filed: 11/02/20 13:40> Related Data Allergies/Adverse Reactions: Allergies Allergy/AdvReac Type Severity Reaction Status Date / Time No Known Allergies Allergy Verified 11/02/20 12:00 <CRYSTAL Cruz Last Filed: 11/02/20 13:40> Review of Systems Review of Systems: Narrative: CONSTITUTIONAL: Denies fever GASTROINTESTINAL: Reports abdominal pain, nausea, vomiting. Denies diarrhea. GENITOURINARY: Denies dysuria <Jade Álvarez PA-C - Last Filed: 11/02/20 13:40> All systems reviewed & are unremarkable except as noted in HPI and below <CRYSTAL Cruz Last Filed: 11/02/20 13:40> PMFSH Past Medical History Medical History: Medical History Diabetes mellitus <Jade Álvarez PA-C - Last Filed: 11/02/20 13:40> Family History Family History: Family History Sibling Diabetes mellitus <Jade Álvarez PA-C - Last Filed: 11/02/20 13:40> Social History Social History: Social History Smoking status: Never smoker Second hand tobacco smoke exposure: No Alcohol intake: never Substance use: never Substance use type: does not use Additional living arrangements comments: lives with parents 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 HEAD: Normocephalic, atraumatic. EYES: EOMI. CHEST: Clear to auscultation. No respiratory distress. No wheezes rales or rhonchi HEART: Regular rate and rhythm. No murmur heard. Normal peripheral pulses. ABDOMEN: Soft, nondistended, normal active bowel sounds. Mild tenderness to palpation throughout the epigastrium, without guarding EXTREMITIES: Normal range of motion. No edema. SKIN: Warm, dry, no rash. NEURO: No focal deficits. Alert and oriented x3. PSYCH: Normal mood and affect <Jade Álvarez PA-C - Last Filed: 11/02/20 13:40> Course Vital Signs Vital signs: Vital Signs Temperature 97.4 F L 11/02/20 11:38 Pulse Rate 74 11/02/20 11:38 Respiratory Rate 18 11/02/20 11:38 Blood Pressure 117/81 11/02/20 11:38 Pulse Oximetry 100 11/02/20 11:38 Temperature 97.4 F L 11/02/20 11:38 Pulse Rate 65 11/02/20 14:32 Respiratory Rate 16 11/02/20 14:32 Blood Pressure 110/66 11/02/20 14:32 Pulse Oximetry 100 11/02/20 14:32 <Jade Álvarez PA-C - Last Filed: 11/02/20 13:40> Vital Signs Temperature 97.4 F L 11/02/20 11:38 Pulse Rate 74 11/02/20 11:38
[2020-11-02 12:26] LABS: Glucose Point of Care 209 (65-105)
[2020-11-02 12:26] LABS: Alanine Aminotransferase 31 U/L (4-50); Albumin Level 4.4 g/dL (3.5-5.1); Alkaline Phosphatase 106 U/L (38-126); Anion Gap 6 mmol/L (8-16); Aspartate Amino Transferase 31 U/L (17-59); Bilirubin,Total 0.9 mg/dL (0.2-1.3); Blood Urea Nitrogen 9 mg/dL (9-20); Calcium 8.9 mg/dL (8.4-10.2); Carbon Dioxide 31 mmol/L (22-30); Chloride 102 mmol/L (98-107); Estimated CRCL calculation 223 ml/min; Estimated Glomerular Filt Rate > 60; Glucose 222 mg/dL (75-110); Magnesium 1.8 mg/dL (1.6-2.3); Phosphorus 3.5 mg/dL (2.5-4.5); Potassium 3.5 mmol/L (3.4-5.0); Sodium 139 mmol/L (137-145)
[2020-11-02 12:29] LABS: Beta-Hydroxybutyrate/Acetoacetate 0.08 mmol/L (0.02-0.27)
--- NOTE | 2020-11-02 12:43 | PC.NURSE ---
encouraged pt for second time to try to void
[2020-11-02 13:04] LABS: Add Urine Microscopic? YES; Appearance Urine Clear (Clear); Bacteria Urine Trace /hpf; Bilirubin Urine Negative (Negative); Blood Urine Negative (Negative); Color Urine Yellow (Yellow); Glucose Urine UA 3+ mg/dL (Negative); Ketones Urine Negative (Negative); Leukocyte Esterase Ur Negative LEU/UL (Negative); Mucus Urine Rare /lpf; Nitrate Urine Negative (Negative); Protein Urine Negative (Negative); RBC Urine 0-2 /hpf (0-2); Squamous Epithelial Cell Urine Rare /hpf (Few); WBC Urine 0-3 /hpf
[2020-11-02 13:06] LABS: Specific Grav Ur 1.039 (1.001-1.035)
[2020-11-02] MEDS: SODIUM CHLORIDE 0.9% IV 1,000 ML 999 ML IV CONT (13:25)
[2020-11-02] MEDS: diphenhydrAMINE HCl INJ 50 MG/ML VIAL 25 MG IV PUSH (13:26)
[2020-11-02] MEDS: METOCLOPRAMIDE HCL INJ 10 MG/2 ML VIAL IV PUSH (13:26)
--- NOTE | 2020-11-02 13:51 | PC.NURSE ---
provider wants pt to receive iv fluids prior to d/c home
[2020-11-02 14:32] VITALS: BP 110/66; PULSE 65; RESP 16; O2SAT 100
== END 2020-11-02 14:33 | disposition home or self-care (01) ==
PROVIDERS: Physician Assistant; Emergency Provider General Practice; PCP Physician Assistant
DX: R14.0 Abdominal distension (gaseous) (principal); E11.9 Type 2 diabetes mellitus without complications
CPT/HCPCS: 36415; 74177; 80053; 81001; 82010; 82948; 83735; 84100; 85025; 96361; 96374; 96375; 99284; J1200; J2765; J7030; Q9967